=== PATIENT | female | born 1990 | race Caucasian/White ===

== ENCOUNTER 2017-02-28 19:29 | Emergency (ER) | payer OTHER ==
[2017-02-28] MEDS ORDERED: Acetaminophen/HYDROcodone 325-5 MG Tab ONE (19:31)
[2017-02-28 19:55] VITALS: BP 135/95
[2017-02-28] MEDS ORDERED: HYDROmorphone 2 MG/ML Syringe IM ONE (20:13)
[2017-02-28] MEDS ORDERED: HYDROmorphone 2 MG/ML Syringe ONE (20:16)
--- NOTE | 2017-02-28 20:16 | EDM.PDOC ---
ED HPI GENERAL MEDICAL PROBLEM - General Chief Complaint: General Stated Complaint: R THUMB INJURY Time Seen by Provider: 02/28/17 19:45 Source of Information: Reports: Patient History Limitations: Reports: No Limitations - History of Present Illness INITIAL COMMENTS - FREE TEXT/NARRATIVE: According to patient she was trying to get out of the car and she was opening the car door and her pet dog jumped on the door and the door shut. pt's right thumb got caught in the car door. Since then she has been having pain in the right thumb. unable to move the thumb. rates her pain at 9/10. No bruising or deformity of the thumb. No open wound. Onset: Today Onset Date: 02/28/17 Onset Time: 19:00 Duration: Constant Location: Reports: Other (right thumb pain) Quality: Reports: Ache Severity: Severe Improves with: Reports: None Worsens with: Reports: None Associated Symptoms: Denies: Confusion, Chest Pain, Cough, Fever/Chills, Loss of Appetite, Nausea/Vomiting, Shortness of Breath, Syncope, Weakness Right Hand Pain Score (Numeric/FACES): 8 - Related Data Allergies Allergy/AdvReac Type Severity Reaction Status Date / Time acetaminophen [From Percocet] Allergy Vomiting Verified 02/28/17 19:31 bupivacaine Allergy Cannot Verified 02/28/17 19:31 Remember oxycodone [From Percocet] Allergy Vomiting Verified 02/28/17 19:31 Home Meds: Home Meds Desogestrel-Ethinyl Estradiol [Apri 28 Day Tablet] 1 each PO DAILY 02/28/17 [ History] Fexofenadine [Demetria] 180 mg PO DAILY 02/28/17 [History] Ranitidine [Zantac] 150 mg PO BID 02/28/17 [History] Spironolactone [Aldactone] 25 mg PO DAILY 02/28/17 [History] Past Medical History HEENT History: Reports: Impaired Vision Gastrointestinal History: Reports: GERD Musculoskeletal History: Reports: Other (See Below) Other Musculoskeletal History: Nose Fx, Finger Fx Dermatologic History: Reports: Other (See Below) Other Dermatologic History: Takes Spironolactone for chronic acne - Infectious Disease History Infectious Disease History: Reports: Chicken Pox - Past Surgical History HEENT Surgical History: Reports: Oral Surgery, Tonsillectomy, Other (See Below) Other HEENT Surgeries/Procedures: [place] Teeth removed via oral surgery GI Surgical History: Reports: Other (See Below) Other GI Surgeries/Procedures: Fecal transplant for C-Diff Social & Family History - Family History Family Medical History: Noncontributory ED ROS GENERAL - Review of Systems Review Of Systems: See Below Constitutional: Denies: Fever, Chills HEENT: Denies: Throat Pain, Throat Swelling Respiratory: Denies: Cough, Sputum Cardiovascular: Denies: Chest Pain, Lightheadedness GI/Abdominal: Denies: Nausea, Vomiting : Denies: Discharge, Flank Pain, Pain, Urgency Musculoskeletal: Reports: Other (hand pain). Denies: Joint Pain, Joint Swelling Skin: Denies: Pruritis, Rash ED EXAM, GENERAL - Physical Exam Exam: See Below Exam Limited By: No Limitations General Appearance: Alert, WD/WN, Moderate Distress Eye Exam: Bilateral Eye: EOMI, PERRL Ears: Normal External Exam, Normal Canal, Hearing Grossly Normal, Normal TMs Ear Exam: Bilateral Ear: Auricle Normal, Canal Normal, TM normal Nose: Normal Inspection, Normal Mucosa, No Blood Throat/Mouth: Normal Inspection, Normal Lips, Normal Teeth, Normal Gums, Normal Oropharynx, Normal Voice, No Airway Compromise Head: Atraumatic, Normocephalic Neck: Normal Inspection, Supple, Non-Tender, Full Range of Motion Respiratory/Chest: No Respiratory Distress, Lungs Clear, Normal Breath Sounds, No Accessory Muscle Use, Chest Non-Tender Cardiovascular: Normal Peripheral Pulses, Regular Rate, Rhythm, No Edema, No Gallop, No JVD, No Murmur, No Rub Extremities: Normal Inspection, Other (Right thumb: there is no swelling of the thumb. PAinful range of motion around the MCP and pip joint. Tender over the proximal phalynx to palpation. ) Course - Vital Signs Text/Narrative:: Xray thumb appear normal I do not see any fracture. Pt also has ROM but painful. I have reassured patient. As she rates her pain at 9/10, she did receive dilaudid 1mg IM in the emergency room. Also pt was discharged home on Vicodin 5/325 i po TID to alternate with motrin 600mg. Cold compresses for 24 hrs. Start ROm activity after 24 hrs when pain improves. If symptoms worsen followup in the clinic. Last Recorded V/S: Last Vital Signs Temp 98.4 F 02/28/17 19:54 Pulse 99 02/28/17 19:54 Resp 16 02/28/17 19:54 BP 135/95 H 02/28/17 19:54 Pulse Ox 100 02/28/17 19:54 - Orders/Labs/Meds Orders: Active Orders 24 hr Category Date Time Status Fingers Thumb Rt F5 [CR] Stat Exams 02/28/17 20:09 Ordered Meds: Medications Discontinued Medications Generic Name Dose Route Start Last Admin Trade Name Bradly PRN Reason Stop Dose Admin Hydromorphone HCl 1 mg 02/28/17 20:13 02/28/17 20:18 Dilaudid IM 02/28/17 20:14 1 mg ONETIME ONE Administration Hydromorphone HCl Confirm 02/28/17 20:16 02/28/17 20:19 Dilaudid Administered 02/28/17 20:17 Not Given Dose 2 mg .ROUTE .STK-MED ONE Departure - Departure Time of Disposition: 20:30 Disposition: Home, Self-Care 01 Condition: fair Clinical Impression: Crushing injury of right thumb - Discharge Information Referrals: PCP,None [Primary Care Provider] - Forms: ED Department Discharge Additional Instructions: Continue to apply cold compresses for 10-15 minutes every 2 hours to help with pain and swelling. Take provided Vicodin as instructed, as well as alternate with Tylenol and Motrin according to package instructions as needed for pain. Follow up with regular provider if needed. Call with any questions. - Problem List & Annotations (1) Crushing injury of right thumb SNOMED Code(s): 15353675 Code(s): S67.01XA - CRUSHING INJURY OF RIGHT THUMB, INITIAL ENCOUNTER Status: Acute Current Visit: Yes - Problem List Review Problem List Initiated/Reviewed/Updated: Yes - My Orders Last 24 Hours: My Active Orders 02/28/17 20:09 Fingers Thumb Rt F5 [CR] Stat - Assessment/Plan Last 24 Hours: My Active Orders 02/28/17 20:09 Fingers Thumb Rt F5 [CR] Stat Assessment:: Right thumb crush injury Plan: Xray thumb appear normal I do not see any fracture. Pt also has ROM but painful. I have reassured patient. As she rates her pain at 9/10, she did receive dilaudid 1mg IM in the emergency room. Also pt was discharged home on Vicodin 5/325 i po TID to alternate with motrin 600mg. Cold compresses for 24 hrs. Start ROm activity after 24 hrs when pain improves. If symptoms worsen followup in the clinic.
--- NOTE | 2017-03-01 08:40 | CR ---
DATE OF SERVICE: 02/28/17 CLINICAL DATA: Crush injury to the thumb. LEFT THUMB: No acute fracture or dislocation. No lytic or blastic bone lesions. IMPRESSION: Negative exam. [id number] [facility]
== END 2017-02-28 20:20 | disposition home or self-care (01) ==
LOC: LB.ED 19:29
DX: S67.01XA Crushing injury of right thumb, initial encounter (principal); V48.4XXA Person boarding or alighting a car injured in noncollision transport accident, initial encounter; Z79.899 Other long term (current) drug therapy
CPT/HCPCS: 73140; 96372; 99283; A9270; J1170

== ENCOUNTER 2019-03-29 22:57 | Emergency (ER) | payer OTHER ==
[2019-03-29 23:14] VITALS: BP 147/92
[2019-03-29] MEDS ORDERED: Cyclobenzaprine 10 MG Tab ONE (23:35)
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
== END 2019-03-29 23:43 | disposition home or self-care (01) ==
LOC: LB.ED 22:57
DX: S01.112A Laceration without foreign body of left eyelid and periocular area, initial encounter (principal); S01.412A Laceration without foreign body of left cheek and temporomandibular area, initial encounter; M62.830 Muscle spasm of back; M62.838 Other muscle spasm; Z88.6 Allergy status to analgesic agent; Z79.899 Other long term (current) drug therapy; Z98.890 Other specified postprocedural states; V00.141A Fall from scooter (nonmotorized), initial encounter
CPT/HCPCS: 99283; A9270

== ENCOUNTER → 2019-10-01 | Outpatient (CLI) | payer OTHER | LOC: LB.LAB 14:18 | PROVIDERS: ATTEND Family Medicine | DX: Z32.00 Encounter for pregnancy test, result unknown (principal) | CPT/HCPCS: 81025 ==

== ENCOUNTER 2019-10-28 21:17 | Emergency (ER) | payer OTHER ==
[2019-10-28] MEDS ORDERED: Ondansetron 4 MG/2 ML SDV IVPUSH ONE (21:22)
[2019-10-28] MEDS: Sodium Chloride 0.9% 2,000 ML IV ONE ×2 (21:40→22:43)
[2019-10-28 23:06] VITALS: BP 136/83; PULSE 86
--- NOTE | 2019-10-29 04:23 | ER ---
REASON FOR EMERGENCY ROOM VISIT: Vomiting and diarrhea. HISTORY: This 29-year-old woman is 8 weeks and this is her second . She has had problems recently with nausea and vomiting of gestation (hyperemesis gravidarum), and she has at times required IV fluids for the dehydration secondary to this. In fact, she was last seen approximately 5 days ago and required IV rehydration. Today, she has had more vomiting than usual and it has continued throughout the day. She was able to eat solids, but she started to have diarrhea this afternoon and had 3 watery diarrheal stools. She has not had any fever or chills, however. She has not been on any recent antibiotics, but it should be noted that she had history of C. difficile colitis in the past. PAST MEDICAL HISTORY: 1. C. difficile colitis requiring fecal transplant. 2. 2, para 1. 3. History of GERD. 4. History of tonsillectomy. MEDICATIONS: See EMR. These were reviewed. ALLERGIES: TO ACETAMINOPHEN, BUPIVACAINE, OXYCODONE. REVIEW OF SYSTEMS: Pertinent positives and negatives as listed in the HPI. PHYSICAL EXAMINATION: GENERAL: She is a pleasant woman who is in no acute distress. VITAL SIGNS: She is afebrile. Heart rate is 86, blood pressure 136/83, respiratory rate is 18, O2 sats 100% on room air. HEENT: No scleral icterus or conjunctivitis. Oropharynx is normal. NECK: Supple. No adenopathy. No JVD. No bruits. CHEST: Clear to auscultation. CARDIAC: Regular rate without murmur. ABDOMEN: Soft and nontender. Pelvic area consistent with 8 weeks gestation. No tenderness, guarding, or rebound. EXTREMITIES: Normal pulses. No edema. SKIN: No rashes. LABORATORY: Stool sample for C. difficile antigen was obtained but the results will not be back until tomorrow. IMPRESSION: Gastroenteritis. FURTHER EMERGENCY ROOM COURSE: I felt that with her history of vomiting followed by diarrhea, this is quite possibly what is going on in her. One has to be mindful of possibility of C. difficile diarrhea. She was hydrated with 2 L of IV normal saline and given 4 mg of IV Zofran, which she has received in the past. She gradually felt somewhat better, and she was instructed regarding diet mainly to stay on clear liquids until her diarrhea subsides. I advised her that it would be a good idea to follow up with her provider either tomorrow or the day after to see how she is doing and as a safeguard, if she has not heard the results of her test for C. difficile antigen, she should probably call in tomorrow afternoon and make sure that somebody has taken a look at it. All questions were answered. She understands and agrees with this. ROSS /[id number]
== END 2019-10-28 23:53 | disposition home or self-care (01) ==
LOC: LB.ED 21:17
DX: O99.611 Diseases of the digestive system complicating pregnancy, first trimester (principal); K52.9 Noninfective gastroenteritis and colitis, unspecified; Z88.8 Allergy status to other drugs, medicaments and biological substances; Z3A.08 8 weeks gestation of pregnancy
CPT/HCPCS: 87493; 96361; 96374; 99284; J2405; J7030

== ENCOUNTER 2019-11-30 17:32 | Emergency (ER) | payer OTHER ==
[2019-11-30] MEDS: Sodium Chloride 0.9% 1,000 ML IV ONE (18:00)
[2019-11-30] MEDS: Ondansetron 4 MG/2 ML SDV IVPUSH ONE (18:20)
[2019-11-30] MEDS: Ondansetron 4 MG/2 ML SDV ONE (18:20)
[2019-11-30 18:30] VITALS: BP 124/62; PULSE 72
[2019-11-30] MEDS: Sodium Chloride 0.9% 250 ML IV SCH (19:05)
[2019-11-30] MEDS: Sodium Chloride 0.9% 1,000 ML IV SCH (19:05)
--- NOTE | 2019-11-30 21:53 | ER ---
REASON FOR EMERGENCY ROOM VISIT: Vomiting. HISTORY OF PRESENT ILLNESS: This 29-year-old woman who is on her second is 13 weeks gestation and comes in and has had several visits to the emergency room for nausea and vomiting of gestation requiring IV rehydration. She does see a physician in [place] for this particular problem. She was last seen here 4 weeks ago with a similar episode. She states that on , she had diarrhea x6 and vomited approximately 5 or 6 times. Yesterday, her diarrhea had ceased and she did not vomit anymore, but continued to have dry heaves throughout the day and was unable to take much in the way of food or liquids. Today, she has eaten some, in fact she ate some corned beef hash earlier today, but still has continued to have dry heaves and subsequent to her eating of corned beef hash, was unable to keep anything down all day. She states she vomits only small amounts. She has not had any fever or chills, and as mentioned above, her diarrhea has not recurred since . She states that the nausea and vomiting episode have been managed medically with a variety of medications including Reglan, Zofran, Diclegis (doxylamine and vitamin B6). These have only worked moderately well at times and she has nonetheless had these breakthrough spells of vomiting where she has been unable to keep anything down. She did contact her physician in [place] by text messaging who advised that she come in and be rehydrated as she has in the past. She has had minimal cough lately and she has not had any fever or chills. PAST MEDICAL HISTORY: 1. Chronic low back pain. 2. 2, para 1. 3. Hyperemesis gravidarum. 4. GERD. 5. History of Clostridium difficile colitis. MEDICATIONS: Include: 1. vitamins. 2. Reglan 10 mg p.o. t.i.d. 3. Zofran 4 mg ODT 1 q.8 hours p.r.n. 4. Diclegis p.r.n. for nausea and vomiting. REVIEW OF SYSTEMS: Pertinent positives and negatives as listed in the HPI. She has not had any vaginal spotting. PHYSICAL EXAMINATION: GENERAL: She is a pleasant woman who is calm and in no acute distress. VITAL SIGNS: She is afebrile, pulse rate is 72, blood pressure 124/62, respirations 16, O2 sats 100% on room air. HEENT: Oropharynx is normal. Pupils equally round and reactive to light. No scleral icterus or conjunctivitis is noted. NECK: Supple. No JVD. No adenopathy. CHEST: Clear to auscultation with good air exchange bilaterally. CARDIAC: Regular rate without murmur. ABDOMEN: Nondistended, soft, and nontender. There is no rebound or guarding. Bowel sounds are present. No hepatosplenomegaly is noted. EXTREMITIES: Normal pulses. No edema is noted. No cyanosis. SKIN: No rashes. LABORATORY DATA: A CBC was within normal limits and her electrolytes are normal on her BMP. She was checked for influenza A and B, and this was negative. EMERGENCY ROOM COURSE: An IV was started and she was given 4 mg of Zofran IV. Additionally, she was given 1 L of normal saline by bolus and a second liter was given over 2 more hours, altogether she was here for approximately 3 hours. After this was completed, she felt considerably better. She did not have any nausea or vomiting while here in the emergency room. IMPRESSION: Hyperemesis gravidarum. PLAN: She knows the routine by now. She will stay on clear liquids until things settle down and then pick and choose as to what she will eat beginning tomorrow. I did suggest that she try Benadryl with these episodes as sometimes that is quite helpful. She is aware of this, although she has not tried it, and she has this at home. All questions were answered. I urged her to follow up with her provider in [place]. She agrees and understands. RALEIGH/HARSHA /[id number]
== END 2019-11-30 21:17 | disposition home or self-care (01) ==
LOC: LB.ED 17:32
DX: O21.0 Mild hyperemesis gravidarum (principal); Z3A.13 13 weeks gestation of pregnancy
CPT/HCPCS: 36415; 80048; 85025; 87430; 87804; 87804-59; 96361; 96374; 99284-25; J2405; J7030; J7050

== ENCOUNTER 2021-10-17 09:50 | Emergency (ER) | payer OTHER ==
[2021-10-17] MEDS ORDERED: Sodium Chloride 0.9% 10 ML Syringe FLUSH PRN ×2 (10:14→10:15)
[2021-10-17] MEDS ORDERED: Sodium Chloride 0.9% 1,000 ML IV SCH (10:15)
[2021-10-17 10:49] VITALS: BP 125/81; PULSE 111
--- NOTE | 2021-10-17 10:51 | EDM.PDOC ---
ED HPI GENERAL MEDICAL PROBLEM - General Chief Complaint: Respiratory Problem Stated Complaint: fever Time Seen by Provider: 10/17/21 10:20 Source of Information: Reports: Patient, EMS Notes Reviewed, RN Notes Reviewed History Limitations: Reports: No Limitations - History of Present Illness INITIAL COMMENTS - FREE TEXT/NARRATIVE: This patient presents to the emergency department for evaluation of cough, nasal congestion, fever. She states she has been sick since 10/14 1 in the evening and has had fevers between 101 101.6. She has a coarse cough and nasal congestion as well. She has no nausea or vomiting. Patient is 30 weeks gestation with third and has gotten IV fluids intermittently thus far with this . She has been using Tylenol and Robitussin for symptomatic care. She denies headache, chest pain, difficulty breathing. She denies other symptoms or concerns. - Related Data Allergies Allergy/AdvReac Type Severity Reaction Status Date / Time No Known Allergies Allergy Verified 10/17/21 11:10 Home Meds: Home Meds Ondansetron [Ondansetron ODT] 4 mg PO Q8H PRN 11/30/19 [History] Pnv,Calcium 72/Iron/Folic Acid [Preplus Ca-Fe 27 mg-FA 1 mg Tb] 1 tab PO DAILY 11/30/19 [History] Past Medical History HEENT History: Reports: Impaired Vision Gastrointestinal History: Reports: GERD [employer]ER History: Reports: Musculoskeletal History: Reports: Other (See Below) Other Musculoskeletal History: Nose Fx, Finger Fx Dermatologic History: Reports: Other (See Below) Other Dermatologic History: Takes Spironolactone for chronic acne - Infectious Disease History Infectious Disease History: Reports: Chicken Pox - Past Surgical History HEENT Surgical History: Reports: Oral Surgery, Tonsillectomy, Other (See Below) Other HEENT Surgeries/Procedures: [place] Teeth removed via oral surgery GI Surgical History: Reports: Other (See Below) Other GI Surgeries/Procedures: Fecal transplant for C-Diff Social & Family History - Family History Family Medical History: No Pertinent Family History - Caffeine Use Caffeine Use: Reports: None ED ROS GENERAL - Review of Systems Review Of Systems: Comprehensive ROS is negative, except as noted in HPI. ED EXAM, GENERAL - Physical Exam Exam: See Below Exam Limited By: No Limitations General Appearance: Alert, No Apparent Distress Eye Exam: Bilateral Eye: EOMI, Normal Inspection, PERRL Ears: Normal External Exam, Normal Canal, Normal TMs Nose: Normal Inspection Throat/Mouth: Normal Inspection, Normal Oropharynx, No Airway Compromise. No: Dysphagia Head: Atraumatic, Normocephalic Neck: Normal Inspection, Non-Tender, Full Range of Motion, Lymphadenopathy (R), Lymphadenopathy (L) Respiratory/Chest: No Respiratory Distress, Lungs Clear, Normal Breath Sounds, No Accessory Muscle Use, Chest Non-Tender Neurological: Alert, Oriented Psychiatric: Normal Affect, Normal Mood Skin Exam: Warm, Dry, Intact, Normal Color Lymphatic: Adenopathy (Bilateral anterior cervical) Course - Vital Signs Last Recorded V/S: Last Vital Signs Temp 37.0 C 10/17/21 09:53 Pulse 111 H 10/17/21 09:53 Resp 18 10/17/21 09:53 BP 125/81 10/17/21 09:53 Pulse Ox 100 10/17/21 09:53 - Orders/Labs/Meds Orders: Active Orders 24 hr Category Date Time Status Sodium Chloride 0.9% [Normal Saline] 1,000 ml Med 10/17/21 10:15 Active IV ASDIRECTED Sodium Chloride 0.9% [Saline Flush] Med 10/17/21 10:14 Active 10 ml FLUSH ASDIRECTED PRN Sodium Chloride 0.9% [Saline Flush] Med 10/17/21 10:15 Active 10 ml FLUSH ASDIRECTED PRN Saline Lock Insert [OM.PC] Routine Oth 10/17/21 10:15 Ordered Medication Orders Sodium Chloride (Normal Saline) 1,000 mls @ 999 mls/hr IV ASDIRECTED MATT Last Admin: 10/17/21 10:43 Dose: 999 mls/hr Documented by: BARBARA Sodium Chloride (Sodium Chloride 0.9% 10 Ml Syringe) 10 ml FLUSH ASDIRECTED PRN PRN Reason: Keep Vein Open Sodium Chloride (Sodium Chloride 0.9% 10 Ml Syringe) 10 ml FLUSH ASDIRECTED PRN PRN Reason: Keep Vein Open Labs: Laboratory Tests 10/17/21 Range/Units 10:15 SARS CoV-2 RNA Rapid HECTOR Negative Meds: Medications Generic Name Dose Route Start Last Admin Trade Name Freq PRN Reason Stop Dose Admin Sodium Chloride 1,000 mls @ 999 mls/hr 10/17/21 10:15 10/17/21 10:43 Normal Saline IV 999 mls/hr ASDIRECTED MATT Administration Sodium Chloride 10 ml 10/17/21 10:14 Sodium Chloride 0.9% 10 Ml Syringe FLUSH ASDIRECTED PRN Keep Vein Open Sodium Chloride 10 ml 10/17/21 10:15 Sodium Chloride 0.9% 10 Ml Syringe FLUSH ASDIRECTED PRN Keep Vein Open - Re-Assessments/Exams Free Text/Narrative Re-Assessment/Exam: This patient today presents for evaluation in the ER of nasal congestion, fever, cough. History and clinical findings are most consistent with influenza a. She is nontoxic appearing, breathing comfortably and saturating well on room air. Chest x-ray was not obtained his lungs are clear on exam and given constellation and during the duration of symptoms, pneumonia is unlikely. She was given 1 L of of normal saline via IV for mild clinical dehydration. Patient has no significant comorbidities and is 30 weeks therefore no antivirals were given today. She is advised to rest, drink extra fluids and follow-up with her primary care provider or shorts sifter as needed. She can continue to use Tylenol, Robitussin as needed for supportive care. She should return to the emergency department should she develop any shortness of breath, confusion, severe headache, any new or worsening symptoms. 10/17/21 11:46 Departure - Departure Time of Disposition: 11:45 Disposition: Home, Self-Care 01 Condition: Good Clinical Impression: Influenza A - Discharge Information *PRESCRIPTION DRUG MONITORING PROGRAM REVIEWED*: Not Applicable *COPY OF PRESCRIPTION DRUG MONITORING REPORT IN PATIENT ANDREW: Not Applicable Instructions: Influenza, Adult, [id number] Forms: ED Department Discharge Sepsis Event Note (ED) - Focused Exam Vital Signs: Vital Signs Temp Pulse Resp BP Pulse Ox 10/17/21 09:53 37.0 C 111 H 18 125/81 100 - My Orders Last 24 Hours: My Active Orders 10/17/21 10:14 Sodium Chloride 0.9% [Saline Flush] 10 ml FLUSH ASDIRECTED PRN 10/17/21 10:15 Sodium Chloride 0.9% [Normal Saline] 1,000 ml IV ASDIRECTED Sodium Chloride 0.9% [Saline Flush] 10 ml FLUSH ASDIRECTED PRN Saline Lock Insert [OM.PC] Routine - Assessment/Plan Last 24 Hours: My Active Orders 10/17/21 10:14 Sodium Chloride 0.9% [Saline Flush] 10 ml FLUSH ASDIRECTED PRN 10/17/21 10:15 Sodium Chloride 0.9% [Normal Saline] 1,000 ml IV ASDIRECTED Sodium Chloride 0.9% [Saline Flush] 10 ml FLUSH ASDIRECTED PRN Saline Lock Insert [OM.PC] Routine
== END 2021-10-17 11:40 | disposition home or self-care (01) ==
LOC: LB.ED 09:50
DX: J10.1 Influenza due to other identified influenza virus with other respiratory manifestations (principal); Z20.822 Contact with and (suspected) exposure to COVID-19
CPT/HCPCS: 87635; 87804; 99283; J7030; U0002

== ENCOUNTER 2022-08-10 21:45 | Emergency (ER) | payer OTHER ==
[2022-08-10] MEDS ORDERED: Sodium Chloride 0.9% 10 ML Syringe FLUSH PRN (21:58)
[2022-08-10] MEDS ORDERED: Ketorolac 60 MG/2 ML SDV IVPUSH ONE (21:59)
[2022-08-10] MEDS ORDERED: Ketorolac 30 MG/ML SDV ONE (22:24)
[2022-08-10] MEDS: HYDROmorphone 2 MG/ML Syringe ONE ×2 (22:29→22:44)
[2022-08-10] MEDS ORDERED: traMADol 50 MG Tab ONE (22:30)
[2022-08-10 22:34] LABS: ESTIMATED GFR 85 mL/min (>60)
[2022-08-10] MEDS ORDERED: HYDROmorphone 2 MG/ML Syringe IVPUSH ONE ×2 (22:39→22:40)
[2022-08-10 22:47] VITALS: BP 130/78; PULSE 61
[2022-08-10] MEDS ORDERED: HYDROmorphone 2 MG/ML Syringe ONE (22:50)
[2022-08-10] MEDS ORDERED: Potassium Chloride 10 MEQ Tab.ER PO ONE (22:52)
== END 2022-08-10 23:08 | disposition home or self-care (01) ==
LOC: LB.ED 21:45
DX: R10.31 Right lower quadrant pain (principal); E87.6 Hypokalemia; R74.8 Abnormal levels of other serum enzymes; Z88.8 Allergy status to other drugs, medicaments and biological substances
CPT/HCPCS: 36415; 80053; 81003; 83690; 85025; 96374; 96375; 99284; A9270; J1170; J1885

== ENCOUNTER 2022-08-13 17:32 | Emergency (ER) | payer OTHER ==
[2022-08-13 17:44] VITALS: BP 128/79; PULSE 94
== END 2022-08-13 18:26 | disposition home or self-care (01) ==
LOC: LB.ED 17:32
DX: S61.251A Open bite of left index finger without damage to nail, initial encounter (principal); Z88.4 Allergy status to anesthetic agent; W55.01XA Bitten by cat, initial encounter
CPT/HCPCS: 99281; 99283

== ENCOUNTER 2022-10-24 10:16 | Emergency (ER) | payer OTHER ==
[2022-10-24] MEDS ORDERED: Sodium Chloride 0.9% 1,000 ML IV ONE ×2 (11:05→11:58)
[2022-10-24] MEDS ORDERED: Ondansetron 4 MG/2 ML SDV IVPUSH ONE (11:06)
[2022-10-24] MEDS ORDERED: Ondansetron 4 MG/2 ML SDV ONE (11:21)
[2022-10-24] MEDS ORDERED: Ketorolac 60 MG/2 ML SDV IVPUSH ONE (13:16)
[2022-10-24] MEDS: Ketorolac 30 MG/ML SDV ONE ×3 (13:19→13:23)
[2022-10-24 15:50] VITALS: BP 111/75; PULSE 77
== END 2022-10-24 15:00 | disposition home or self-care (01) ==
LOC: LB.ED 10:16
DX: K52.9 Noninfective gastroenteritis and colitis, unspecified (principal); Z88.8 Allergy status to other drugs, medicaments and biological substances; Z20.822 Contact with and (suspected) exposure to COVID-19
CPT/HCPCS: 36415; 80048; 85027; 87804; 87804-59; 96361; 96374; 99284-25; J1885; J2405; J7030; U0002

== ENCOUNTER 2024-12-22 17:51 | Emergency (ER) | payer OTHER ==
[2024-12-22] MEDS: Ondansetron 4 MG Tab.DIS PO ONE (18:08)
[2024-12-22] MEDS ORDERED: Sodium Chloride 0.9% 10 ML Syringe FLUSH PRN (18:18)
[2024-12-22] MEDS: GI Cocktail Oral Solution 30 ML PO ONE (18:26)
[2024-12-22] MEDS: Prochlorperazine 10 MG/2 ML SDV IVPUSH ONE (18:27)
[2024-12-22 18:31] LABS: BASOPHILS ABSOLUTE AUTO 0.04 K/uL (0.02-0.10); BASOPHILS PERCENT AUTO 0.4 % (0.0-0.5); EOSINOPHILS ABSOLUTE AUTO 0.18 K/uL (0.04-0.40); EOSINOPHILS PERCENT AUTO 1.7 % (1.0-5.0); HEMATOCRIT 46.4 % (37.0-47.0); HEMOGLOBIN 15.6 g/dL (11.5-16.5); LYMPHOCYTES ABSOLUTE AUTO 1.23 K/uL (1.50-4.00); MEAN CORPUSCULAR HEMOGLOBIN 29.5 pg (27.0-32.0); MEAN CORPUSCULAR HGB CONC 33.6 g/dL (31.0-35.0); MEAN CORPUSCULAR VOLUME 88 fL (76-96); MEAN PLATELET VOLUME 9.4 fL (6.0-10.0); MONOCYTES ABSOLUTE AUTO 0.41 K/uL (0.20-0.80); NEUTROPHILS ABSOLUTE AUTO 8.43 K/uL (2.00-7.50); NEUTROPHILS PERCENT AUTO 81.9 % (45.0-70.0); PLATELET COUNT,PLT 300 K/uL (150-500); RED BLOOD CELL COUNT 5.28 M/uL (3.80-5.80); RED CELL DISTRIBUTION WIDTH 12.6 % (11.0-16.0); WHITE BLOOD CELL COUNT,WBC 10.3 K/uL (4.0-11.0)
[2024-12-22] MEDS: Iopamidol 612 MG/ML 100 ML Bottle IV SCH (18:35)
[2024-12-22] MEDS: Sodium Chloride 0.9% 1,000 ML IV SCH (18:40)
[2024-12-22 18:52] LABS: ALANINE AMINOTRANSFERASE,ALT 26 U/L (12-78); ALBUMIN 3.8 g/dL (3.4-5.0); ALKALINE PHOSPHATASE 44 U/L (46-116); ANION GAP 13.2 mmol/L (5.0-15.0); ASPARTATE AMNIOTRANSFERASE,AST 22 U/L (15-37); BILIRUBIN TOTAL 1.7 mg/dL (0.0-1.0); BLOOD UREA NITROGEN,BUN 11 mg/dL (8-26); BUN/CREATININE RATIO 14.3 (6-25); C-REACTIVE PROTEIN 7.7 mg/L (<5.0); CALCIUM 8.9 mg/dL (8.5-10.1); CARBON DIOXIDE,CO2 25.8 mmol/L (21.0-32.0); CHLORIDE,CL 105 mmol/L (98-107); CREATININE 0.77 mg/dL (0.55-1.02); EST CRCL DRUG DOSING (CG) 89.74 mL/min; ESTIMATED GFR 104 mL/min (>60); GLUCOSE RANDOM 80 mg/dL (74-100); PROTEIN TOTAL,TP 7.6 g/dL (6.4-8.2); SODIUM,NA 140 mmol/L (136-145)
[2024-12-22 18:55] LABS: TROPONIN I HIGH SENSITIVITY < 4.0 pg/ml (<=60.4)
[2024-12-22 19:47] LABS: APPEARANCE,URINE CLEAR (CLEAR); COLOR,URINE YELLOW; GLUCOSE,URINE NEGATIVE (NEGATIVE); PH,URINE 5.5 (5.0-8.0); PROTEIN,URINE NEGATIVE (NEGATIVE)
[2024-12-22 19:48] LABS: BILIRUBIN,URINE SMALL (NEGATIVE); KETONES,URINE 80 mg/dL (NEGATIVE); LEUKOCYTE ESTERASE,URINE NEGATIVE (NEGATIVE); NITRITE,URINE NEGATIVE (NEGATIVE); OCCULT BLOOD,URINE NEGATIVE (NEGATIVE); UROBILINOGEN,URINE 0.2 E.U./dL (0.2-1.0)
[2024-12-22] MEDS: Sodium Chloride 0.9% 50 ML SDV FLUSH ONE (19:54)
[2024-12-22 20:31] VITALS: BP 117/67; PULSE 83
[2024-12-22] MEDS: Pantoprazole 40 MG Vial IVPUSH ONE (20:36)
== END 2024-12-22 20:50 | disposition home or self-care (01) ==
LOC: LB.ED 17:51
DX: K26.9 Duodenal ulcer, unspecified as acute or chronic, without hemorrhage or perforation (principal); K21.9 Gastro-esophageal reflux disease without esophagitis; Z88.4 Allergy status to anesthetic agent; Z79.899 Other long term (current) drug therapy
CPT/HCPCS: 36415; 74177; 80053; 81003; 81025; 83690; 84484; 85025; 86140; 96361; 96374; 96375; 99283; 99284-25; A9270-GY; J0780; J2470; J3490; J7030; Q0162; Q9967